=== PATIENT | female | born 1955 | race Caucasian/White ===

== ENCOUNTER 2024-09-08 11:52 | Emergency (ER) | payer MEDICARE, BC ==
[~2024-09-08] VITALS: Ht 165.1 cm; Wt 68.9 kg
[2024-09-08 14:17] VITALS: BP 140/90; TEMP 98.1; O2SAT 99
== END 2024-09-08 13:05 | disposition home or self-care (01) ==
LOC: ER 11:56
DX: K40.90 Unilateral inguinal hernia, without obstruction or gangrene, not specified as recurrent (principal); J45.909 Unspecified asthma, uncomplicated; Z85.118 Personal history of other malignant neoplasm of bronchus and lung